=== PATIENT | female | born 1965 | race Caucasian/White ===

== ENCOUNTER 2021-06-17 08:00 | Outpatient (CLI) | payer OTHER ==
--- NOTE | 2021-06-17 15:26 | XRAY Report ---
PROCEDURE: Toe(s) LT INDICATIONS: CRUSHING INJURY TO LEFT GREAT TOE TECHNIQUE: 3 views of the first toe(s) acquired. COMPARISON: None FINDINGS: Bones: Nondisplaced fracture involving first distal phalangeal base is seen with fracture line extend ing to first interphalangeal joint space. No suspicious bony lesions. Soft tissues: No suspicious soft tissue densities. IMPRESSION: Nondisplaced comminuted intra-articular fracture of first distal phalangeal base. Reviewed by: Low Belle MD on 06/17/2021 3:25 PM PDT Approved by: Low Belle MD on 06/17/2021 3:25 PM PDT Station ID: [id number]
--- NOTE | 2021-06-17 15:27 | XRAY Report ---
PROCEDURE: Foot 3 View LT INDICATIONS: CRUSHING INJURY TO LEFT FOOT TECHNIQUE: 3 views of the foot were acquired. COMPARISON: None FINDINGS: Bones: Comminuted and nondisplaced fracture involving first distal phalangeal base is seen with fract ure line extending to first interphalangeal joint. No other fracture or dislocation. No suspicious b lon lesions. Soft tissues: No tibiotalar joint effusion. Achilles tendon appears normal. IMPRESSION: Comminuted and undisplaced first distal phalangeal base intra-articular fracture as above. Reviewed by: Low Belle MD on 06/17/2021 3:26 PM PDT Approved by: Low Belle MD on 06/17/2021 3:26 PM PDT Station ID: [id number]
== END 2021-06-17 23:59 | disposition home or self-care (01) ==
LOC: DI.S 08:00
PROVIDERS: ATTEND Physician Assistant Medical
DX: S92.425A Nondisplaced fracture of distal phalanx of left great toe, initial encounter for closed fracture (principal)
CPT/HCPCS: 73660